=== PATIENT | male | born 1970 | race Caucasian/White ===

== ENCOUNTER 2018-02-02 21:40 | Emergency (ER) | payer OTHER ==
[~2018-02-02] VITALS: Ht 172.7 cm; Wt 115.9 kg
[2018-02-02] MEDS ORDERED: EPIVIR300 MG PO (22:02)
[2018-02-02] MEDS ORDERED: SUSTIVA600 MG PO (22:03)
[2018-02-02] MEDS ORDERED: TENOFOVIR DISO300 MG PO (22:03)
[2018-02-02] MEDS ORDERED: PRINIVIL5 MG PO (22:04)
[2018-02-02] MEDS ORDERED: VISTARIL25 MG PO ×2 (22:06)
[2018-02-02] MEDS ORDERED: CLONAZEPAM1 MG PO (22:07)
[2018-02-02] MEDS ORDERED: LORATADINE10 M3 PO (22:08)
[2018-02-02] MEDS ORDERED: WELLBUTRIN SR150 MG PO ×2 (22:09)
[2018-02-02 23:00] VITALS: BP 144/88
== END 2018-02-02 23:20 | DRG 605 ==
LOC: ED 21:40
PROC: 0JQH3ZZ Repair Left Lower Arm Subcutaneous Tissue and Fascia, Percutaneous Approach (ICD-10-PCS; principal; 2018-02-02)
PROC: 0HQDXZZ Repair Right Lower Arm Skin, External Approach (ICD-10-PCS; 2018-02-02)
DX: S51.812A Laceration without foreign body of left forearm, initial encounter (principal); S51.811A Laceration without foreign body of right forearm, initial encounter; S00.81XA Abrasion of other part of head, initial encounter; F32.9 Major depressive disorder, single episode, unspecified; X78.8XXA Intentional self-harm by other sharp object, initial encounter; Y92.149 Unspecified place in prison as the place of occurrence of the external cause; X83.8XXA Intentional self-harm by other specified means, initial encounter; I10 Essential (primary) hypertension; Z21 Asymptomatic human immunodeficiency virus [HIV] infection status

== ENCOUNTER 2019-02-03 21:08 | Observation (INO) | payer OTHER ==
[~2019-02-03] VITALS: Ht 177.8 cm; Wt 111.2 kg
[~2019-02-03 21:08] MED LIST: CLONAZEPAM1 MG PO; EPIVIR300 MG PO; LORATADINE10 M3 PO; PRINIVIL5 MG PO; SUSTIVA600 MG PO; TENOFOVIR DISO300 MG PO; VISTARIL25 MG PO; WELLBUTRIN SR150 MG PO
[2019-02-03 23:59] LABS: HEMATOCRIT 48.3 % (39.0-50.0); HEMOGLOBIN 17.1 g/dl (14.0-18.0); IMMATURE GRANULOCYTES 0.3 % (0.0-5.0); MEAN CELL VOLUME 90.3 fL CALC (80.0-100.0); MEAN CORPUSCULAR HGB CONC 35.4 g/L CALC (32.0-36.0); NEUT# 4.88 thou/uL (1.82-7.42); RED BLOOD COUNT 5.35 mill/uL (4.70-6.10); RED CELL DISTRI WIDTH 11.9 % (11.5-15.5)
[2019-02-04 00:16] LABS: PROTHROMBIN TIME 10.9 SECONDS (9.0-12.5)
[2019-02-04] MEDS ORDERED: TEGRETOL PO (00:19)
[2019-02-04] MEDS ORDERED: CLONAZEPAM1 MG PO (00:19)
[2019-02-04] MEDS ORDERED: TEGRETOL200 MG PO (00:20)
[2019-02-04 00:33] VITALS: BP 146/107
[2019-02-04 00:45] LABS: ALBUMIN 5.4 g/dL (3.2-5.0); ALKALINE PHOSPHATASE 99 u/l (38-126); ANION GAP 21 (6-22 (CALC)); BILIRUBIN, TOTAL 0.6 mg/dL (0.0-1.4); BUN 21 mg/dL (9-20); BUN/CREATININE RATIO 21 (12-20 (CALC)); CARBON DIOXIDE 17 mmol/l (22-30); CHLORIDE 109 mmol/l (95-108); GFR > 60 ML/MIN (>=60 (CALC)); GFR FOR AFR.AMER. > 60 ML/MIN (>=60 (CALC)); POTASSIUM 4.3 mmol/l (3.5-5.1); SGOT/AST 27 u/l (17-59); SODIUM 142 mmol/l (137-146); TOTAL PROTEIN 8.6 g/dL (6.3-8.2)
[2019-02-04 01:12] VITALS: BP 135/97
[2019-02-04 04:24] VITALS: BP 133/83
[2019-02-04 07:00] VITALS: BP 145/88
[2019-02-04 13:54] VITALS: BP 130/80
== END 2019-02-04 15:02 | disposition designated cancer center or children's hospital (05) | DRG 395 ==
LOC: ED 21:08 → ED-I 22:22 → ED 23:42 → MS2 23:43
PROVIDERS: Emergency Medicine; ADMIT Surgery; ATTEND Surgery
PROC: 0DC68ZZ Extirpation of Matter from Stomach, Via Natural or Artificial Opening Endoscopic (ICD-10-PCS; principal; 2019-02-04)
DX: T18.2XXA Foreign body in stomach, initial encounter (principal); I10 Essential (primary) hypertension; X58.XXXA Exposure to other specified factors, initial encounter; Y92.149 Unspecified place in prison as the place of occurrence of the external cause; Z21 Asymptomatic human immunodeficiency virus [HIV] infection status
CPT/HCPCS: G0378

== ENCOUNTER 2019-02-10 18:03 | Emergency (ER) | payer OTHER ==
[~2019-02-10] VITALS: Ht 177.8 cm; Wt 100.0 kg
[~2019-02-10 18:03] MED LIST changes: +TEGRETOL PO; +TEGRETOL200 MG PO
[2019-02-10 20:28] VITALS: BP 128/86
== END 2019-02-10 20:28 | disposition short-term general hospital (02) | DRG 395 ==
LOC: ED 18:03
DX: T18.2XXA Foreign body in stomach, initial encounter (principal); I10 Essential (primary) hypertension; Z21 Asymptomatic human immunodeficiency virus [HIV] infection status; X58.XXXA Exposure to other specified factors, initial encounter; Y93.89 Activity, other specified; Y92.149 Unspecified place in prison as the place of occurrence of the external cause

== ENCOUNTER 2023-11-22 08:19 | Day surgery (SDC) | payer OTHER ==
[~2023-11-22] VITALS: Ht 177.8 cm; Wt 117.9 kg
[~2023-11-22 08:19] MED LIST changes: +CLARITIN10 M1 PO; +NAPROXEN500 MG PO; +PRAVASTATIN20 MG PO; +TENOFOVIR DISO300 MG; +WELLBUTRIN SR100 MG PO; +WELLBUTRIN200 MG PO; +ZESTRIL40 MG PO; +[UNRECOGNIZED DRUG - OTHER]
[2023-11-22] MEDS ORDERED: FAMOTIDINE 10MG/ML 2ML SDV IV ONE (08:21)
[2023-11-22] MEDS ORDERED: ceFAZolin Sodium 2 GM/VIAL SDV ONE (08:22)
[2023-11-22] MEDS ORDERED: LACTATED RINGER'S 1,000 ML IV ONE (08:22)
[2023-11-22] MEDS ORDERED: SODIUM CHLORIDE 0.9% 100 ML IV ONE (08:22)
[2023-11-22] MEDS ORDERED: BUPIVACAINE 133 MG/10 ML VIAL IJ ONE (08:43)
[2023-11-22] MEDS ORDERED: SODIUM CHLORIDE 20 ML/VIAL SDV ONE (08:44)
[2023-11-22] MEDS ORDERED: PERCOCET 5/325M1 TAB PO (10:49)
[2023-11-22] MEDS ORDERED: HYDROmorphone HCL 2 MG/AMP ONE (10:58)
[2023-11-22 11:36] VITALS: BP 154/85
[2023-11-22] MEDS ORDERED: SUCCINYLCHOLINE CHLORIDE 20 MG/ML 10ML VIAL IV ONE (12:09)
[2023-11-22] MEDS ORDERED: KETOROLAC TROMETHAMINE 30 MG/ML SDV IV ONE (12:09)
[2023-11-22] MEDS ORDERED: ONDANSETRON HCl 4 MG/2 ML SDV IV ONE (12:09)
[2023-11-22] MEDS ORDERED: ROCURONIUM BROMIDE 10 MG/ML 5ML VIAL IV ONE (12:09)
[2023-11-22] MEDS ORDERED: LIDOCAINE HCL 2% 2ML SDV IV ONE (12:09)
[2023-11-22] MEDS ORDERED: DEXAMETHASONE SODIUM PHOSPHATE PF 10 MG/ML SDV IV ONE (12:09)
[2023-11-22] MEDS ORDERED: LACTATED RINGER'S 1,000 ML BAG IV ONE (12:09)
[2023-11-22] MEDS ORDERED: PROPOFOL 200 MG/20 ML VIAL IV ONE (12:09)
[2023-11-22] MEDS ORDERED: SUGAMMADEX SODIUM 200 MG/2 ML SDV IV ONE (12:09)
[2023-11-22] MEDS ORDERED: ACETAMINOPHEN 1,000 MG/100 ML VIAL IV ONE (12:09)
[2023-11-22] MEDS ORDERED: GLYCOPYRROLATE 0.2 MG/ML IV ONE (12:09)
[2023-11-22] MEDS ORDERED: MORPHINE SULFATE 4 MG/ML VIAL IV ONE (12:09)
[2023-11-22] MEDS ORDERED: STERILE WATER FOR IRRIGATION 1,000 ML BTL IR ONE (12:50)
[2023-11-22] MEDS ORDERED: SODIUM CHLORIDE 1,000 ML BTL IR ONE (12:50)
== END 2023-11-22 11:55 | DRG 355 ==
LOC: ORM 08:19
PROVIDERS: ATTEND Surgery
PROC: 0WUF4JZ Supplement Abdominal Wall with Synthetic Substitute, Percutaneous Endoscopic Approach (ICD-10-PCS; principal; 2023-11-22)
DX: K43.9 Ventral hernia without obstruction or gangrene (principal); K42.9 Umbilical hernia without obstruction or gangrene; M62.08 Separation of muscle (nontraumatic), other site; I10 Essential (primary) hypertension; Z21 Asymptomatic human immunodeficiency virus [HIV] infection status
CPT/HCPCS: C9290; J0131; J0690; J1100